=== PATIENT | female | born 1970 | race Caucasian/White ===

== ENCOUNTER 2016-09-28 08:34 | Emergency (ER) | payer OTHER, MEDICARE ==
[~2016-09-28] VITALS: Ht 167.6 cm; Wt 80.3 kg
[~2016-09-28 08:34] MED LIST: ATORVASTATIN CA10 MG PO; AUGMENTIN 875-1 EACH PO; BUPROPION HCL150 MG PO; BUPROPION XL150 MG PO; CALTRATE 600+D1 TAB PO; FIORICET 325 MG1 TAB PO; JUNEL FE 1 MG-1 EACH PO; LAMOTRIGINE150 MG PO; MECLIZINE HCL12.5 M1 PO; MONTELUKAST SOD10 MG PO; MULTIVITAMIN1 TAB PO; OMEPRAZOLE40 MG PO; PREDNISONE5 M1 PO; VALACYCLOVIR HYD1 GM PO; VALACYCLOVIR500 M1 PO; [UNRECOGNIZED DRUG - OTHER] PO
--- NOTE | 2016-09-28 08:44 | ED HEADACHE COMPLAINT ---
History of Present Illness General Chief Complaint: Headache Stated Complaint: MIGRAINE, VOMITING X 12 HOURS Source: patient Exam Limitations: no limitations Vital Signs & Intake/Output Vital Signs & Intake/Output Vital Signs Date Time Temp Pulse Resp B/P Pulse O2 O2 Flow FiO2 Ox Delivery Rate 09/28 1047 97.4 83 20 139/88 100 Room Air 09/28 0840 98.9 88 20 126/83 99 Room Air Room Air Allergies Coded Allergies: ondansetron (Intermediate, RASH 12/31/15) prochlorperazine (Severe, SEIZURES AND VOMITING 12/31/15) oxycodone (Intermediate, VOMITING 12/31/15) Reconcile Medications Atorvastatin Calcium (Lipitor) 10 MG TABLET 1 TAB PO QPM CHOLESTEROL ( Reported) Azelastine HCl (Astepro) 205.5 MCG (0.15 %) SPRAY.PUMP 2 SPRAY NASB DAILY PRN ALLERGIES (Reported) Budesonide (Budesonide EC) 3 MG CAPDR...ER 3 CAP PO DAILY CROHNS (Reported) Bupropion HCl (Bupropion XL) 150 MG TAB.ER.24H 1 TAB PO DAILY MENTAL HEALTH ( Reported) Calcium Carbonate/Vitamin D3 (Calcium 500 + D Tablet) 500 MG-400 TABLET 1 TAB PO DAILY SUPPLEMENT (Reported) Cyanocobalamin (Vitamin B-12) (B-12) 500 MCG TABLET 1 TAB PO DAILY SUPPLEMENT (Reported) Gabapentin 300 MG CAPSULE 1 CAP PO QPM MOOD STABILITY (Reported) Lamotrigine 150 MG TABLET 2 TAB PO QPM MOOD STABILITY (Reported) Lamotrigine 150 MG TABLET 300 MG PO QPM ANXIETY (Reported) Magnesium Oxide (Magnesium) 500 MG CAPSULE 1 CAP PO DAILY SUPPLEMENT ( Reported) Mesalamine (Pentasa) 500 MG CAPSULE.ER 2 CAP PO 4 TIMES/DAY CROHNS (Reported) Multivits,Ca,Minerals/Iron/FA (Women's Daily Caplet) 27 MG IRON-400 MCG TABLET 1 TAB PO DAILY SUPPLEMENT (Reported) Norethindrone-E.estradiol-Iron (Junel Fe 1 MG-20 Mcg Tablet) 1 EACH TABLET 1 TAB PO DAILY CONTROL (Reported) Reason to Stop at ADM: NOT NEEDED Omeprazole 40 MG CAPSULE.DR 1 CAP PO QPM GI (Reported) Valacyclovir HCl (Valacyclovir) 500 MG TABLET 2 TAB PO DAILY HERPES, PROPHYLACTIC (Reported) Triage Note: PT TO ED WITH HEADACHE, NAUSEA, VOMITING, DIARRHEA HX CHRON'S "I THOUGHT IT WAS A CHRON'S FLARE UP". NOW NO MORE DIARRHEA, NOW NAUSEA/VOMITING THIS AM,AND HEADACHE. Triage Nurses Notes Reviewed? yes Onset: Abrupt Duration: hour(s): (12) Timing: multiple episodes today Quality/Severity: moderate Head Injury Location: frontal No Modifying Factors: none Associated Symptoms: nausea/vomiting, headache : No Patient currently breastfeeds: No HPI: 46 year old female who presents to the ED for chief complaint of headache x 12 hours. History of similar headaches in the past, associated with nausea and vomiting. She initially thought it was her crohns flare up but states now it feels like her migraine headache. She had some diarrhea which has since stopped. No fever or chills. No cough, shortness of breath, chest pain or palpitations. Past History Travel History Traveled to [place] past 21 day No Medical History Any Pertinent Medical History? see below for history Neurological: migraine EENT: NONE Cardiovascular: hyperlipidemia Respiratory: asthma Gastrointestinal: GERD, hiatal hernia Hepatic: NONE Renal: NONE Musculoskeletal: NONE Psychiatric: bipolar disease, depression, BORDERLINE PERSONALITY Endocrine: NONE Blood Disorders: NONE Cancer(s): PRE-CERVICAL CA MACHINE WORKER/Reproductive: genital herpes History of MRSA: No History of VRE: No History of CDIFF: No Surgical History Surgical History: PRE-CERVICAL CA,TONSILS, OVARIAN CYST sinus surgery 04/26/2016 Psychosocial History Who do you live with Family What is your primary language Gambian Tobacco Use: Never used ETOH Use: denies use Illicit Drug Use: denies illicit drug use Family History Hx Contributory? No Review of Systems Review of Systems Constitutional: Denies: chills, fever. Eyes: Reports: no symptoms. Ears, Nose, Throat, Mouth: Reports: no symptoms. Respiratory: Denies: cough, short of breath, sputum production. Cardiovascular: Denies: chest pain, palpitations. Gastrointestinal/Abdominal: Reports: diarrhea, nausea, vomiting. Genitourinary: Reports: no symptoms. Musculoskeletal: Reports: no symptoms. Skin: Reports: no symptoms. Neurological/Psychological: Reports: headache. Hematologic/Endocrine: Denies: bruising, bleeding, polyuria, polydipsia. Endocrine: Reports: no symptoms. Immunologic/Allergic: Denies: splenectomy. All Other Systems: Reviewed and Negative Physical Exam Physical Exam General Appearance: well developed/nourished, alert, awake, anxious, mild distress Head: atraumatic, normal appearance Eyes: Bilateral: normal appearance, PERRL, EOMI. Ears, Nose, Throat: normal pharynx, normal ENT inspection, hearing grossly normal Neck: normal inspection, supple, full range of motion Respiratory: normal breath sounds, chest non-tender, no respiratory distress Cardiovascular: regular rate/rhythm Gastrointestinal: normal bowel sounds, soft, non-tender Back: normal inspection, normal range of motion Extremities: normal inspection, normal capillary refill, normal range of motion, no edema Psychiatric: awake, alert, oriented x 3 Cranial Nerves: normal hearing, normal speech, PERRL Coordination/Gait: normal gait Motor/Sensory: no motor/sensory deficits Skin: intact Core Measures Severe Sepsis Present: No Septic Shock Present: No Progress Differential Diagnosis: encephalitis, intracranial Hem., migraine ALLISON, musculoskeletal pain, sinusitis, subarach. Hem., tension ALLISON Plan of Care: Orders Procedure Date/time Status Clear Liquid Diet 09/28 L Active LIPASE 09/28 855 Complete COMPREHENSIVE METABOLIC PANEL 09/28 855 Complete CBC WITHOUT DIFFERENTIAL 09/28 855 Complete Laboratory Tests 09/28/16 1003: Anion Gap 13, Estimated GFR > 60, BUN/Creatinine Ratio 12.5, Glucose 89, Calcium 8.8, Total Bilirubin 0.6, AST 16, ALT 31, Alkaline Phosphatase 76, Total Protein 6.3, Albumin 3.8, Globulin 2.5, Albumin/Globulin Ratio 1.5, Lipase 51 09/28/16 0905: CBC w Diff NO MAN DIFF REQ, RBC 4.04 L, MCV 91.3, MCH 31.1 H, RDW 12.9, MPV 6.0 L, Gran % 76.4 H, Lymphocytes % 16.4 L, Monocytes % 6.7, Eosinophils % 0.3, Basophils % 0.2, Absolute Granulocytes 8.4 H, Absolute Lymphocytes 1.8, Absolute Monocytes 0.7 H, Absolute Eosinophils 0, Absolute Basophils 0, PUBS MCHC 34.0 saline, toradol, protonix iv. labs sent. 09/28/2016 11:37:55 AM Patient tolerating clear liquids and states her headache is resolved. I will discharge her home at this time. (INGIRD HOLLIS,SYEDA) Departure Departure Time of Disposition: 1138 Disposition: HOME OR SELF CARE Condition: Stable Clinical Impression Primary Impression: Migraine headache Referrals: ANDRZEJ RAMOS APRN (PCP/Family) Additional Instructions: Clear liquid diet today and advance as tolerated. Please follow-up with your doctors. Return to the ER for any changing or worsening symptoms. Departure Forms: Customer Survey General Discharge Information
[2016-09-28] MEDS ORDERED: BUDESONIDE EC3 MG PO (09:07)
[2016-09-28] MEDS ORDERED: GABAPENTIN300 M2 PO (09:07)
[2016-09-28] MEDS ORDERED: PENTASA500 M1 PO (09:07)
[2016-09-28] MEDS ORDERED: LAMOTRIGINE150 M1 PO (09:08)
[2016-09-28] MEDS ORDERED: WOMEN'S DAILY1 EAC3 PO (09:08)
[2016-09-28] MEDS ORDERED: MAGNESIUM500 M2 PO (09:10)
[2016-09-28] MEDS ORDERED: B-12500 MC1 PO (09:10)
[2016-09-28] MEDS ORDERED: CALCIUM 500 +1 EAC5 PO (09:10)
[2016-09-28] MEDS ORDERED: ASTEPRO205.5 MCG1 NASB (09:11)
[2016-09-28 09:12] LABS: ABSOLUTE BASOPHIL COUNT 0 /CUMM (0.0-0.2); ABSOLUTE EOSINOPHIL COUNT 0 /CUMM (0.0-0.7); ABSOLUTE GRANULOCYTE CT 8.4 /CUMM (1.4-6.5); ABSOLUTE LYMPH COUNT 1.8 /CUMM (1.2-3.4); ABSOLUTE MONOCYTE COUNT 0.7 /CUMM (0.10-0.60); BASOPHIL % 0.2 % (0.0-2.0); EOSINOPHIL % 0.3 % (0-5); GRANULOCYTE % 76.4 % (42.2-75.2); HEMATOCRIT 36.9 % (37-47); MEAN CORPUSCULAR HGB 31.1 PG (27.0-31.0); MEAN CORPUSCULAR VOLUME 91.3 FL (81.0-99.0); PLATELET COUNT 402 /CUMM (130-400); RBC DISTRIBUTION WIDTH 12.9 % (11.5-14.5); RED BLOOD CELL CT 4.04 /CUMM (4.20-5.40)
[2016-09-28 10:47] VITALS: BP 139/88
== END 2016-09-28 11:47 ==
LOC: ERH 08:34
PROVIDERS: Emergency Medicine
DX: G43.909 Migraine, unspecified, not intractable, without status migrainosus (principal)
CPT/HCPCS: 96361; 96374; 96375; J1885

== ENCOUNTER 2016-10-07 06:45 | Emergency (ER) | payer OTHER, MEDICARE ==
[~2016-10-07] VITALS: Ht 166.4 cm; Wt 78.5 kg
[~2016-10-07 06:45] MED LIST changes: +ASTEPRO205.5 MCG1 NASB; +B-12500 MC1 PO; +BUDESONIDE EC3 MG PO; +CALCIUM 500 +1 EAC5 PO; +GABAPENTIN300 M2 PO; +LAMOTRIGINE150 M1 PO; +MAGNESIUM500 M2 PO; +PENTASA500 M1 PO; +WOMEN'S DAILY1 EAC3 PO
[2016-10-07 06:53] VITALS: BP 118/74
--- NOTE | 2016-10-07 07:16 | ED EYE COMPLAINT ---
History of Present Illness General Chief Complaint: Eye Problems Stated Complaint: LEFT EYE YELLOW DISCHARGE AND PAIN Source: patient Exam Limitations: no limitations Vital Signs & Intake/Output Vital Signs & Intake/Output Vital Signs Date Time Temp Pulse Resp B/P Pulse O2 O2 Flow FiO2 Ox Delivery Rate 10/07 0723 98 10/07 0653 97.3 105 18 118/74 98 Room Air Allergies Coded Allergies: ondansetron (Intermediate, RASH 10/07/16) prochlorperazine (Severe, SEIZURES AND VOMITING 10/07/16) oxycodone (Intermediate, VOMITING 10/07/16) Reconcile Medications Atorvastatin Calcium (Lipitor) 10 MG TABLET 1 TAB PO QPM CHOLESTEROL ( Reported) Azelastine HCl (Astepro) 205.5 MCG (0.15 %) SPRAY.PUMP 2 SPRAY NASB DAILY PRN ALLERGIES (Reported) Budesonide (Budesonide EC) 3 MG CAPDR...ER 3 CAP PO DAILY CROHNS (Reported) Bupropion HCl (Bupropion XL) 150 MG TAB.ER.24H 1 TAB PO DAILY MENTAL HEALTH ( Reported) Calcium Carbonate/Vitamin D3 (Calcium 500 + D Tablet) 500 MG-400 TABLET 1 TAB PO DAILY SUPPLEMENT (Reported) Cyanocobalamin (Vitamin B-12) (B-12) 500 MCG TABLET 1 TAB PO DAILY SUPPLEMENT (Reported) Erythromycin Base (Erythromycin) 5 MG/GRAM (0.5 %) OINT...G. 1 MORRO OPH 4XDP CONJUNCTIVITIIS apply 1 cm ribbon into the lower conjunctival sac Erythromycin Base (Erythromycin) 5 MG/GRAM (0.5 %) OINT...G. 1 MORRO OPH 4XDP CONJUNCTIVITIS apply 1 cm ribbon into the lower conjunctival sac Gabapentin 300 MG CAPSULE 1 CAP PO QPM MOOD STABILITY (Reported) Lamotrigine 150 MG TABLET 300 MG PO QPM ANXIETY (Reported) Magnesium Oxide (Magnesium) 500 MG CAPSULE 1 CAP PO DAILY SUPPLEMENT ( Reported) Mesalamine (Pentasa) 500 MG CAPSULE.ER 2 CAP PO 4 TIMES/DAY CROHNS (Reported) Multivits,Ca,Minerals/Iron/FA (Women's Daily Caplet) 27 MG IRON-400 MCG TABLET 1 TAB PO DAILY SUPPLEMENT (Reported) Norethindrone-E.estradiol-Iron (Junel Fe 1 MG-20 Mcg Tablet) 1 EACH TABLET 1 TAB PO DAILY CONTROL (Reported) Reason to Stop at ADM: NOT NEEDED Omeprazole 40 MG CAPSULE.DR Parra CAP PO QPM GI (Reported) Sulfamethoxazole/Trimethoprim (Bactrim Ds Tablet) 800 MG-160 MG TABLET 1 TAB PO BID SINUSITIS/PERIORB CELLULITIS Sulfamethoxazole/Trimethoprim (Bactrim Ds Tablet) 800 MG-160 MG TABLET 1 TAB PO BID PERIORB CELLULITIS Valacyclovir HCl (Valacyclovir) 500 MG TABLET 2 TAB PO DAILY HERPES, PROPHYLACTIC (Reported) Triage Note: TRIAGE: PATIENT TO ER FROM HOME REPORTING L SIDE FACIAL PAIN AND DRY COUGH X 1 WEEK W/ THIS AM L EYE SWOLLEN SHUT W/ YELLOW DRAINAGE NOTED. REPORTS INTERMITTENT FEVERS X 1 WEEK, AFEBRILE IN TRIAGE. DENIES ANY SOB, NO ACUTE RESP DISTRESS NOTED. REPROTS SAW PCP AND WAS TOLD, "DON'T WANT TO PRESCRIBE RX D/T HX CHRONS." Triage Nurses Notes Reviewed? yes Onset: Abrupt Duration: day(s): (1) Timing: single episode today Injury Environment: home Severity: moderate No Modifying Factors: none Left Eye Associated Symptoms: DISCHARGE, PAIN : No Patient currently breastfeeds: No HPI: THis is a 46 year old female with history of crohns colitis on pentasa who presents to the ER with chief complaint of left eye pain, swelling and discharge that started yesterday abruptly. She isn't suffering with some URI symptoms and sinus pressure for the last few days however yesterday she noticed some redness and swelling to left thigh. She states it quickly progressed 8:00 last night and this morning. This morning when she woke up her eyelid was swollen shut with yellow discharge. Fever of 102 on Friday but no fever since. She states that she saw her doctor last week for URI symptoms but they didn't place her on an antibiotic secondary to her history of Crohn's. Positive sick contacts at home. Past History Travel History Traveled to [place] past 21 day No Medical History Any Pertinent Medical History? see below for history Neurological: migraine EENT: NONE Cardiovascular: hyperlipidemia Respiratory: asthma Gastrointestinal: Crohn's disease, GERD, hiatal hernia Hepatic: NONE Renal: NONE Musculoskeletal: NONE Psychiatric: bipolar disease, depression, BORDERLINE PERSONALITY Endocrine: NONE Blood Disorders: NONE Cancer(s): PRE-CERVICAL CA PEST CONTROL WORKER/Reproductive: genital herpes History of MRSA: No History of VRE: No History of CDIFF: No Surgical History Surgical History: PRE-CERVICAL CA,TONSILS, OVARIAN CYST sinus surgery 04/26/2016 Psychosocial History Who do you live with Family What is your primary language Arabic Tobacco Use: Refused to answer Family History Hx Contributory? No Review of Systems Review of Systems Constitutional: Reports: fever. Physical Exam General Appearance: well developed/nourished, alert, awake, anxious, mild distress General Inspection: periorbital erythema, periorbital swelling Eyelid: edema, erythema Conjunctiva/Sclera: scleral icterus, subconjunctival hemorrhag, CHEMOSIS Cornea: normal inspection, examined w/fluorescein EOM: intact (PAIN WITH MOVEMENT) General Inspection: normal inspection Eyelid: normal inspection Conjunctiva/Sclera: normal inspection Cornea: normal inspection Pupil: normal accommodation, normal pupil, PERRL Physical Exam Head: atraumatic, normal appearance Nose: normal inspection Mouth/Throat: normal mouth inspection, pharynx normal Neck: normal inspection, supple, full range of motion Cardiovascular/Respiratory: normal breath sounds, normal peripheral pulses, regular rate/rhythm Neurologic/Psych: no motor/sensory deficits, awake, alert, oriented x 3 Skin: intact, normal color, warm/dry Progress Differential Diagnosis: conjunctivitis, UVEITIS, ORBITAL CELLULITIS, PERIORBITAL CELLULITIS, HERPES Plan of Care: Orders Procedure Date/time Status CT ORBITS WO IV CONTRAST 10/07 727 Active Diagnostic Imaging: Viewed by Me: CT Scan. Discussed w/RAD: CT Scan. Comments: PATIENT: TAYO MONTEZ PRESENT AGE: 46 PATIENT ACCOUNT NO: [id number] : 71 LOCATION: [facility] ORDERING PHYSICIAN: SYEDA QUINTERO MD SERVICE DATE: 10/07/16 EXAM TYPE: CAT - CT ORBITS WO IV CONTRAST EXAMINATION: CT ORBIT WITHOUT CONTRAST CLINICAL INFORMATION: Left eye pain and erythema. COMPARISON: CT dated 03/04/2016. TECHNIQUE: Multidetector helical imaging was performed in the axial plane with generation of reformatted acquisitions. DLP: 168.42 mGy-cm. FINDINGS: The globes are symmetric in appearance. There is mild left-sided preseptal soft tissue swelling with subconjunctival fluid also visible. The retrobulbar fat is normal. No post septal inflammatory changes are seen. The optic nerve sheath complexes and extraocular muscles appear normal. There is no visible proptosis. No abnormal subperiosteal fluid collection is seen. There are fluid levels in the frontal sinuses and frontal recesses which are nearly opacified. There is significant mucosal thickening in the ethmoid sinuses. There is subtotal mucosal/fluid opacification of the left sphenoid sinus. Large fluid levels nearly opacify the maxillary antra bilaterally with associated mucosal thickening. The maxillary sinus ostia and infundibula are opacified as well. No bony erosive changes are seen. Please note that the maxillary dentition was not included on imaging to evaluate for any underlying odontogenic disease. On a prior CT from 03/04/2016, the maxillary dentition appears normal. The imaged portions of the brain appear normal. The TMJs are normal. The middle ear cavities and mastoid air cells are aerated. IMPRESSION: Left-sided preseptal cellulitis with subconjunctival fluid. No post septal inflammatory changes or drainable fluid collection. Significant paranasal sinus disease with fluid levels. DICTATED BY: ARUN ABRAHAM MD DATE/TIME DICTATED:10/07/16840 MORTGAGE LOAN PROCESSING CLERK:DRAGAN DATE/TIME TRANSCRIBED:10/07/16840 CONFIDENTIAL, DO NOT COPY WITHOUT APPROPRIATE AUTHORIZATION. <Electronically signed in Other Vendor System> SIGNED BY: ARUN ABRAHAM MD 51 Departure Departure Time of Disposition: 853 Disposition: HOME OR SELF CARE Condition: Stable Clinical Impression Primary Impression: Conjunctivitis Secondary Impressions: Periorbital cellulitis of left eye Referrals: ANDRZEJ RAMOS APRN (PCP/Family) Additional Instructions: Take the bactrim and erythromycin ointment as directed. Follow up with the eye doctor listed. Return for any changing or worsening symptoms. Departure Forms: Customer Survey General Discharge Information Prescriptions: Current Visit Scripts Sulfamethoxazole/Trimethoprim (Bactrim Ds Tablet) 1 TAB PO BID #20 TAB Erythromycin Base (Erythromycin) 1 MORRO OPH 4XDP #3.5 GM apply 1 cm ribbon into the lower conjunctival sac Sulfamethoxazole/Trimethoprim (Bactrim Ds Tablet) 1 TAB PO BID #20 TAB Erythromycin Base (Erythromycin) 1 MORRO OPH 4XDP #3.5 GM apply 1 cm ribbon into the lower conjunctival sac
--- NOTE | 2016-10-07 08:51 | CT SCAN REPORT ---
EXAMINATION: CT ORBIT WITHOUT CONTRAST CLINICAL INFORMATION: Left eye pain and erythema. COMPARISON: CT dated 03/04/2016. TECHNIQUE: Multidetector helical imaging was performed in the axial plane with generation of reformatted acquisitions. DLP: 168.42 mGy-cm. FINDINGS: The globes are symmetric in appearance. There is mild left-sided preseptal soft tissue swelling with subconjunctival fluid also visible. The retrobulbar fat is normal. No post septal inflammatory changes are seen. The optic nerve sheath complexes and extraocular muscles appear normal. There is no visible proptosis. No abnormal subperiosteal fluid collection is seen. There are fluid levels in the frontal sinuses and frontal recesses which are nearly opacified. There is significant mucosal thickening in the ethmoid sinuses. There is subtotal mucosal/fluid opacification of the left sphenoid sinus. Large fluid levels nearly opacify the maxillary antra bilaterally with associated mucosal thickening. The maxillary sinus ostia and infundibula are opacified as well. No bony erosive changes are seen. Please note that the maxillary dentition was not included on imaging to evaluate for any underlying odontogenic disease. On a prior CT from 03/04/2016, the maxillary dentition appears normal. The imaged portions of the brain appear normal. The TMJs are normal. The middle ear cavities and mastoid air cells are aerated. IMPRESSION: Left-sided preseptal cellulitis with subconjunctival fluid. No post septal inflammatory changes or drainable fluid collection. Significant paranasal sinus disease with fluid levels.
[2016-10-07] MEDS ORDERED: BACTRIM DS TAB1 EACH PO ×2 (08:56→09:02)
[2016-10-07] MEDS ORDERED: ERYTHROMYCIN1 GM OPH ×2 (08:56→09:02)
== END 2016-10-07 09:01 ==
LOC: ERH 06:45
DX: H10.9 Unspecified conjunctivitis (principal); L03.211 Cellulitis of face